=== PATIENT | male | born 1955 | race American Indian/Alaskan Native ===

== ENCOUNTER 2018-01-13 00:36 | Emergency (ER) | payer MEDICAID ==
[2018-01-13] MEDS ORDERED: NACL 0.9% 500 ML 500 ML IV ONE (02:19)
--- NOTE | 2018-01-13 02:21 | Emergency Department Report ---
ED General Adult HPI - General Chief complaint: Altered Mental Status Stated complaint: AMS Time Seen by Provider: 01/13/18 01:04 Source: EMS (ems notes not available at time of chart dictation), RN notes reviewed, old records reviewed Mode of arrival: Stretcher Limitations: Physical Limitation, Other (patient is demented. Patient is a poor historian. No one available for collateral information at this time) - History of Present Illness Initial comments: This is a 62-year-old male, unknown to this provider previously, care home resident with residual aphasia, bedbound, seizure disorder, dementia, left- sided weakness. Patient was apparently sent to the ER from a local care home for evaluation of altered mental status and possible hypoxia. Patient is nonverbal and cannot describe this. There is no one available to clarify this history. No further history is available at this time. As per verbal report from the nurse, patient may have had an episode of hypoxia however this is not documented, this can neither be refuted or corroborated at this time. -: unknown Radiation: other Severity scale (0 -10): 0 Quality: other Consistency: other Improves with: other Worsens with: other Associated Symptoms: other - Related Data Previous Rx's Medication Instructions Recorded Last Taken Type Aspirin [Aspirin BABY CHEW TAB] 81 mg PO QDAY #30 tab.chew 10/31/16 Unknown Rx AtorvaSTATin [Lipitor] 40 mg PO QHS #30 tablet 10/31/16 Unknown Rx Bisacodyl [Dulcolax suppos] 10 mg NC QDAY PRN #20 supp.rect 10/31/16 Unknown Rx Metoprolol Xl [Metoprolol 25 mg PO QDAY #30 tablet 10/31/16 Unknown Rx SUCCINATE ER TAB] Aspirin [Aspirin BABY CHEW TAB] 81 mg PO QDAY #30 tab.chew 01/13/18 Unknown Rx Levofloxacin [Levaquin] 750 mg PO QDAY #5 tablet 01/13/18 Unknown Rx Allergies Allergy/AdvReac Type Severity Reaction Status Date / Time No Known Allergies Allergy Unverified 10/28/16 20:02 ED Review of Systems ROS: Stated complaint: AMS Other details as noted in HPI Comment: Unobtainable due to pts medical conditions ED Past Medical Hx - Past Medical History Previous Medical History?: Yes Hx Hypertension: Yes Hx CVA: Yes Hx Seizures: Yes Hx Psychiatric Treatment: Yes (dementia depression) Hx Dementia: Yes Additional medical history: generalized muscle weakness dysphagia aphasia - Surgical History Additional Surgical History: unknown - Social History Smoking Status: Never Smoker - Medications Home Medications: Home Medications Medication Instructions Recorded Confirmed Last Taken Type Aspirin [Aspirin BABY CHEW TAB] 81 mg PO QDAY #30 tab.chew 10/31/16 Unknown Rx AtorvaSTATin [Lipitor] 40 mg PO QHS #30 tablet 10/31/16 Unknown Rx Bisacodyl [Dulcolax suppos] 10 mg NC QDAY PRN #20 supp.rect 10/31/16 Unknown Rx Metoprolol Xl [Metoprolol 25 mg PO QDAY #30 tablet 10/31/16 Unknown Rx SUCCINATE ER TAB] Aspirin [Aspirin BABY CHEW TAB] 81 mg PO QDAY #30 tab.chew 01/13/18 Unknown Rx Levofloxacin [Levaquin] 750 mg PO QDAY #5 tablet 01/13/18 Unknown Rx ED Physical Exam - General Limitations: Physical Limitation, Other (demented, poor historian) General appearance: in no apparent distress - Head Head exam: Present: atraumatic, normocephalic - Eye Eye exam: Present: normal appearance - ENT ENT exam: Present: normal orophraynx, mucous membranes moist - Neck Neck exam: Present: normal inspection, full ROM - Respiratory Respiratory exam: Present: normal lung sounds bilaterally. Absent: respiratory distress - Cardiovascular Cardiovascular Exam: Present: regular rate, normal rhythm, normal heart sounds. Absent: bradycardia, tachycardia, irregular rhythm, systolic murmur, diastolic murmur, rubs, gallop - GI/Abdominal GI/Abdominal exam: Present: soft, normal bowel sounds. Absent: distended, tenderness, guarding, rebound, rigid, pulsatile mass - Rectal Rectal exam: Present: normal inspection, other (stage II sacral breakdown) - exam: Present: normal inspection - Extremities Exam Extremities exam: Present: normal inspection, pedal edema. Absent: calf tenderness - Back Exam Back exam: Present: normal inspection. Absent: CVA tenderness (R), paraspinal tenderness - Neurological Exam Neurological exam: Present: alert (patient is awake. Does not follow commands.) , motor sensory deficit (weakness in the left arm, left leg), other (patient nonverbal.) - Psychiatric Psychiatric exam: Present: normal affect, normal mood - Skin Skin exam: Present: warm, dry, intact, normal color. Absent: rash ED Course Vital Signs 01/13/18 01/13/18 01/13/18 00:59 01:30 02:00 Temperature 97.8 F Pulse Rate 98 H 86 88 Respiratory 16 16 14 Rate Blood Pressure 119/80 Blood Pressure 106/74 107/70 [Left] O2 Sat by Pulse 99 98 98 Oximetry 01/13/18 02:12 Temperature Pulse Rate Respiratory Rate Blood Pressure Blood Pressure [Left] O2 Sat by Pulse 98 Oximetry - Reevaluation(s) Reevaluation #1: 01/13/18 02:29 Differential diagnosis, including but not limited to: Pneumonia, pulmonary embolus, urinary tract infection, electrolyte derangement, natural history of dementia Assessment and plan: 62-year-old male with no obvious complaints of this provider sent to the ER for evaluation of altered mental status and possible hypoxia. This is not documented and are corroborated. As per review of old medical records, the patient is nonverbal. His exam today appears to resemble previously documented exams from October 2016. He is afebrile with reassuring vital signs. We will check CT scan of the brain, CT scan of the chest, basic laboratory studies, EKG, urinalysis. Rectal temperature 99.1 degrees. Reevaluation #2: 01/13/18 04:58 CT scan of the chest shows no pulmonary embolus. Early possible pneumonia as suggested. Noncontrast CT scan of the brain demonstrates calcifications which are likely chronic. Patient has a right-sided lurdes-paroxysmal weakness, and therefore is very unlikely to be experiencing left MCA syndrome. Incidental CT scan findings are noted and appreciated, and the patient will need to continue aspirin, and to follow up with outpatient primary care or neurology. He has not had any episodes of desaturation, and his mental status has been unchanged while in the department ED Medical Decision Making - Lab Data Result diagrams: 01/13/18 02:58 01/13/18 02:58 Vital Signs 01/13/18 01/13/18 01/13/18 00:59 01:30 02:00 Temperature 97.8 F Pulse Rate 98 H 86 88 Respiratory 16 16 14 Rate Blood Pressure 119/80 Blood Pressure 106/74 107/70 [Left] O2 Sat by Pulse 99 98 98 Oximetry 01/13/18 02:12 Temperature Pulse Rate Respiratory Rate Blood Pressure Blood Pressure [Left] O2 Sat by Pulse 98 Oximetry - EKG Data -: EKG Interpreted by [place] EKG shows normal: sinus rhythm - EKG Data When compared to previous EKG there are: no significant change 01/13/18 04:58 Sinus, 76 bpm, left axis deviation, left anterior fascicular block, abnormal EKG , unchanged from prior from October 1999 - Radiology Data Radiology results: report reviewed, image reviewed Print Report Referring Physician: CATRINA VALLEJO Patient Name: TAYLER SUE Date of : 1955 Sex: Male Report Date: 2018-01-13 Report Status: Finalized Findings [facility] [address] [place] [address] Cat Scan Report Signed Patient: TAYLER SUE MR#: [id number] : 1955 Acct:[id number] Age/Sex: 62 / M ADM Date: 01/13/18 Loc: ED Attending Dr: Ordering Physician: CATRINA VALLEJO MD Date of Service: 01/13/18 Procedure(s): CT angio chest Accession Number(s): [id number] cc: CATRINA VALLEJO MD FINAL REPORT EXAM: CT ANGIO CHEST HISTORY: history of hypoxia tachycardia TECHNIQUE: CT imaging obtained through the chest in pulmonary angiographic phase following intravenous administration of contrast. Transaxial, Coronal and sagittal reformats with maximal intensity projections are provided. PRIORS: Chest radiograph of the same date FINDINGS: Normal caliber main pulmonary artery. Well opacified pulmonary arterial tree. No pulmonary embolism. No pericardial effusion. Coronary artery disease is present. Heart size is within normal limits. Thoracic aorta is normal in course and caliber. No periaortic fluid or stranding. No pneumothorax or effusion. Patchy but near confluent nodularity in the posterior superior left lower lung best demonstrated on axial series 2, image 48. Ill-defined ground-glass attenuating possible airway infiltration in the right lower lung on axial series 2, image 75 is suspicious for additional site of infection. The central airways are patent. No bronchiectasis. Imaged portion of the upper abdomen is remarkable for a large stool burden and possible gastric ulcer along the anterior greater curvature on axial series 2, images 93-96. The superficial soft tissues are unremarkable. No acute bony abnormality or worrisome osseous lesions identified. IMPRESSION: No pulmonary embolism. Near confluent superior posterior left lower lung nodularity may represent infection and/or aspiration. Much more subtle finding in the right lower lung is likely related to the same process. Questionable gastric ulcer along the anterior greater curvature. No pneumoperitoneum or upper abdominal fluid to suggest perforation. Coronary artery disease. Transcribed By: MB Dictated By: CATRINA LEYVA MD Electronically Authenticated By: CATRINA LEYVA MD Signed Date/Time: 01/13/18 0440 nt Report Referring Physician: CATRINA VALLEJO Patient Name: TAYLER SUE Date of : 1955 Sex: Male Report Date: 2018-01-13 Report Status: Finalized Findings [facility] [address] [place] [address] Cat Scan Report Signed Patient: TAYLER SUE MR#: [id number] : 1955 Acct:[id number] Age/Sex: 62 / M ADM Date: 01/13/18 Loc: ED Attending Dr: Ordering Physician: CATRINA VALLEJO MD Date of Service: 01/13/18 Procedure(s): CT head/brain wo con Accession Number(s): [id number] cc: CATRINA VALLEJO MD FINAL REPORT EXAM: CT HEAD/BRAIN WO CON HISTORY: Altered Mental Status TECHNIQUE: CT imaging is acquired through the brain without contrast. Transaxial reformations are provided. PRIORS: None. FINDINGS: Ventricles and CSF spaces are proportionately enlarged, consistent with parenchymal atrophy. Significant calcification and increased density in both the supraclinoid internal carotid arteries. Suggested in the dense left MCA on axial series 2, image 21. Ill-defined subcortical subinsular hypodensity on the right (series 2, image 28.) additional scattered deep and subcortical white matter hypodense foci are confluent in some areas and are compatible with microvascular angiopathy. No acute intracranial hemorrhage or mass effect. No skull fracture. No significant abnormality within the imaged paranasal sinuses or mastoid air cells. IMPRESSION: No acute intracranial hemorrhage or mass effect. Significant calcification in the supraclinoid internal carotid arteries predisposes the patient to acute ischemia, and there is sequela of subacute/chronic ischemia in the distribution of the right middle cerebral artery. Dense left MCA is also suggested. Correlation for symptoms of left MCA infarct is requested. Follow-up MRI is recommended if not previously performed. There are chronic sequela of atrophy and underlying microvascular angiopathy. Dr. Leyva discussed findings with at 0325 central Time on 01/13/2018 immediately following the examination. Transcribed By: MB Dictated By: CATRINA LEYVA MD Electronically Authenticated By: CATRINA LEYVA MD Signed Date/Time: 01/13/18 0432 Print Report Referring Physician: CATRINA VALLEJO Patient Name: TAYLER SUE Date of : 1955 Sex: Male Report Date: 2018-01-13 Report Status: Finalized Findings [facility] [address] [place] [address] XRay Report Signed Patient: TAYLER SUE MR#: [id number] : 1955 Acct:[id number] Age/Sex: 62 / M ADM Date: 01/13/18 Loc: ED Attending Dr: Ordering Physician: CATRINA VALLEJO MD Date of Service: 01/13/18 Procedure(s): XR chest 1V ap Accession Number(s): [id number] cc: CATRINA VALLEJO MD Fluoro Time In Minutes: FINAL REPORT EXAM: XR CHEST 1V AP HISTORY: Altered Mental Status COMPARISON: None available. FINDINGS: Frontal view(s) of the chest obtained. Cardiac silhouette within normal limits. Shallow inspiration. No gross consolidation or effusion. No pneumothorax. IMPRESSION: No grossly acute findings. Transcribed By: LMA Dictated By: DIGNA GARCES MD Electronically Authenticated By: DIGNA GARCES MD Signed Date/Time: 01/13/18 0247 Critical care attestation.: If time is entered above; I have spent that time in minutes in the direct care of this critically ill patient, excluding procedure time. ED Disposition Clinical Impression: History of CVA with residual deficit, Dementia Disposition: DC/TX-70 ANOTHER TYPE HLTHCARE Is pt being admited?: No Does the pt Need Aspirin: No Condition: Stable Additional Instructions: Continue current outpatient medications. Take the aspirin as directed, antibiotics as directed. CT scan of the chest suggested early pneumonitis versus pneumonia. Patient should have an outpatient swallow study/evaluation to determine if he requires feeding tube. CT scan of the brain demonstrated multiple calcifications. Patient at risk for stroke in the future. He should follow up with a primary care doctor or neurologist for these incidental findings within the next month. Please return to the ER right away with fevers , chills, lethargy, irritability, projectile vomiting, change in mental status, vision, inability to tolerate liquid feeds. Referrals: ZAINAB BOATENG MD [Primary Care Provider] - 3-5 Days NIKIA CLEMENS MD [Referring] - 3-5 Days
--- NOTE | 2018-01-13 02:50 | XRay Report ---
FINAL REPORT EXAM: XR CHEST 1V AP HISTORY: Altered Mental Status COMPARISON: None available. FINDINGS: Frontal view(s) of the chest obtained. Cardiac silhouette within normal limits. Shallow inspiration. No gross consolidation or effusion. No pneumothorax. IMPRESSION: No grossly acute findings.
[2018-01-13 03:00] LABS: Amorphous Crystals,Urine Few; Bilirubin,Urine NEG (Negative); Blood,Urine NEG (Negative); Color,Urine Yellow (Yellow); Granular Casts,Urine 2 /LPF; Hyaline Casts,Urine 56 /LPF; Mucus,Urine 3+ /HPF
[2018-01-13 03:29] LABS: Hematocrit 37.2 % (35.5-45.6); Hemoglobin 12.9 gm/dl (11.8-15.2); Mean Corpuscular HGB Conc 35 % (32-34); Mean Corpuscular Hemoglobin 33 pg (28-32); Mean Corpuscular Volume 95 fl (84-94); Platelet Count 180 K/mm3 (140-440); Red Blood Count 3.93 M/mm3 (3.65-5.03); Red Cell Distribution Width 12.1 % (13.2-15.2)
[2018-01-13 03:46] LABS: Alanine Aminotransferase 21 units/L (7-56); Albumin 3.6 g/dL (3.9-5); BUN/Creatinine Ratio 17; Blood Urea Nitrogen 15 mg/dL (9-20); Calcium 8.1 mg/dL (8.4-10.2); Hemolysis Index 3
--- NOTE | 2018-01-13 04:36 | Cat Scan Report ---
FINAL REPORT EXAM: CT HEAD/BRAIN WO CON HISTORY: Altered Mental Status TECHNIQUE: CT imaging is acquired through the brain without contrast. Transaxial reformations are provided. PRIORS: None. FINDINGS: Ventricles and CSF spaces are proportionately enlarged, consistent with parenchymal atrophy. Significant calcification and increased density in both the supraclinoid internal carotid arteries. Suggested in the dense left MCA on axial series 2, image 21. Ill-defined subcortical subinsular hypodensity on the right (series 2, image 28.) additional scattered deep and subcortical white matter hypodense foci are confluent in some areas and are compatible with microvascular angiopathy. No acute intracranial hemorrhage or mass effect. No skull fracture. No significant abnormality within the imaged paranasal sinuses or mastoid air cells. IMPRESSION: No acute intracranial hemorrhage or mass effect. Significant calcification in the supraclinoid internal carotid arteries predisposes the patient to acute ischemia, and there is sequela of subacute/chronic ischemia in the distribution of the right middle cerebral artery. Dense left MCA is also suggested. Correlation for symptoms of left MCA infarct is requested. Follow-up MRI is recommended if not previously performed. There are chronic sequela of atrophy and underlying microvascular angiopathy. Dr. Cerda discussed findings with at 0325 central Time on 01/13/2018 immediately following the examination.
--- NOTE | 2018-01-13 04:44 | Cat Scan Report ---
FINAL REPORT EXAM: CT ANGIO CHEST HISTORY: history of hypoxia tachycardia TECHNIQUE: CT imaging obtained through the chest in pulmonary angiographic phase following intravenous administration of contrast. Transaxial, Coronal and sagittal reformats with maximal intensity projections are provided. PRIORS: Chest radiograph of the same date FINDINGS: Normal caliber main pulmonary artery. Well opacified pulmonary arterial tree. No pulmonary embolism. No pericardial effusion. Coronary artery disease is present. Heart size is within normal limits. Thoracic aorta is normal in course and caliber. No periaortic fluid or stranding. No pneumothorax or effusion. Patchy but near confluent nodularity in the posterior superior left lower lung best demonstrated on axial series 2, image 48. Ill-defined ground-glass attenuating possible airway infiltration in the right lower lung on axial series 2, image 75 is suspicious for additional site of infection. The central airways are patent. No bronchiectasis. Imaged portion of the upper abdomen is remarkable for a large stool burden and possible gastric ulcer along the anterior greater curvature on axial series 2, images 93-96. The superficial soft tissues are unremarkable. No acute bony abnormality or worrisome osseous lesions identified. IMPRESSION: No pulmonary embolism. Near confluent superior posterior left lower lung nodularity may represent infection and/or aspiration. Much more subtle finding in the right lower lung is likely related to the same process. Questionable gastric ulcer along the anterior greater curvature. No pneumoperitoneum or upper abdominal fluid to suggest perforation. Coronary artery disease.
[2018-01-13 06:36] VITALS: BP 116/74
== END 2018-01-13 07:37 | disposition other institution (70) ==
LOC: ED 00:36
DX: F03.90 Unspecified dementia, unspecified severity, without behavioral disturbance, psychotic disturbance, mood disturbance, and anxiety (principal); I10 Essential (primary) hypertension; Z86.73 Personal history of transient ischemic attack (TIA), and cerebral infarction without residual deficits; Z79.82 Long term (current) use of aspirin
CPT/HCPCS: 36415; 70450; 71045; 71275; 80053; 81001; 82140; 82550; 84443; 85027; 93005; 93010; 99285; G0480; J7040; Q9967; 80320